=== PATIENT | female | born 1940 | race Caucasian/White ===

== ENCOUNTER 2016-06-13 17:48 | Observation (INO) | payer OTHER ==
[~2016-06-13] VITALS: Ht 157.5 cm; Wt 65.9 kg
[~2016-06-13 17:48] MED LIST: ATOR20TA PO; DORZ1SOL2 EACH EYE; FOSA70TA PO; LOSA25TA31 PO; ST JTAB PO; TAB-TAB PO; XALA0.00 EACH EYE
[2016-06-13 18:25] VITALS: BP 114/59; PULSE 72; RESP 16; TEMP 99.5; O2SAT 97
[2016-06-13] MEDS ORDERED: CARBIDOPA/LEVODOPA 25 MG/250 MG TAB PO ONE (19:15)
[2016-06-13] MEDS ORDERED: SODIUM CHLOR 0.9% 1000 ML INJ 1,000 ML IV ONE ×2 (19:29→23:45)
[2016-06-13] MEDS ORDERED: ONDANSETRON HCL 4 MG/2 ML VIAL IVP ONE (19:30)
[2016-06-13] MEDS ORDERED: MECLIZINE HCL 25 MG TAB PO ONE (19:30)
--- NOTE | 2016-06-13 19:43 | PD ---
HPI Chief Complaint: Dizziness Time Seen by Provider: 19:30 Travel History International Travel<30 days: No Contact w/Intl Traveler<30days: No Traveled to known affect area: No History of Present Illness HPI This is a 75-year-old female who presents via EMS for evaluation. She reports that since this morning she has been having dizziness, room spinning vertigo sensation, lower abdominal pain, nausea and vomiting and diarrhea. She reports that the vertigo sensation is worse when she is walking, improved when she is lying down flat. She reports an aching sensation in her left lower abdomen which is mild. She endorses several episodes of diarrhea this morning which improved with the use of Imodium. She has also been having nausea and vomiting this morning which has improved throughout the day. She denies any headache, blurred vision, fevers or chills, cough or congestion, shortness of breath, chest pain, palpitations, syncope, recent antibiotic use, history of diverticulosis, dysuria, flank pain. She does report that she has similar dizziness sensation last year and she was told that it was secondary to a low potassium at that time. She reports a remote history of breast cancer, uterine cancer, as well as hypertension. She has no other complaints. PFSH Past Medical History Arthritis: Yes Asthma: No Blood Disorders: No Anxiety: No Depression: No Heart Rhythm Problems: No Cancer: Yes (breast AND UTERINE) Cardiovascular Problems: Yes (HTN) High Cholesterol: Yes Chemotherapy: Yes (BREAST & UTERINE CA) Chest Pain: No Congestive Heart Failure: No COPD: No Diabetes: No Diminished Hearing: No Endocrine: No Glaucoma: Yes Genitourinary: No Hypertension: Yes Immune Disorder: No Musculoskeletal: Yes (OSTEOPOROSIS) Neurologic: No Psychiatric: No Reproductive: No Respiratory: No Sleep Apnea: No ?: Not Menopausal: Yes Past Surgical History Gynecologic Surgery: Yes (alexander mastectomy [id number] with chemo HYSTER) Hysterectomy: Yes Mastectomy: Yes (BILATERAL 1999) Oral Surgery: Yes (tonsillectomy) Tonsillectomy: Yes Other Surgery: Yes Social History Alcohol Use: Yes (RARE) Tobacco Use: No (quit 15 years ago) Substance Use: No Allergies-Medications (Allergen,Severity, Reaction): Coded Allergies: No Known Allergies (Verified , 06/13/16) Reported Meds & Prescriptions Reported Meds & Active Scripts Active Zofran Odt (Ondansetron Odt) 4 Mg Tab 4 Mg SL Q6HR PRN Reported Losartan (Losartan Potassium) 25 Mg Tab 25 Mg PO DAILY Atorvastatin (Atorvastatin Calcium) 20 Mg Tab 20 Mg PO DAILY Review of Systems Except as stated in HPI: all other systems reviewed are Neg Physical Exam Narrative GENERAL: Well-developed well-nourished female in no acute distress SKIN: Warm and dry. HEAD: Atraumatic. Normocephalic. EYES: Pupils equal and round. No scleral icterus. No injection or drainage. ENT: No nasal bleeding or discharge. Mucous membranes pink and moist. NECK: Trachea midline. No JVD. CARDIOVASCULAR: Regular rate and rhythm. No murmur appreciated. RESPIRATORY: No accessory muscle use. Clear to auscultation. Breath sounds equal bilaterally. GASTROINTESTINAL: Abdomen soft, mild left lower quadrant tenderness without guarding. No CVA tenderness. MUSCULOSKELETAL: No obvious deformities. No clubbing. No cyanosis. No edema. NEUROLOGICAL: Awake and alert. No obvious cranial nerve deficits. Motor grossly within normal limits. Normal speech. No nystagmus. PSYCHIATRIC: Appropriate mood and affect; insight and judgment normal. Data Data Last Documented VS Vital Signs Date Time Temp Pulse Resp B/P Pulse Ox O2 Delivery O2 Flow Rate FiO2 06/13/16 23:24 72 16 113/56 80 16 123/58 79 16 133/73 06/13/16 18:25 99.5 97 Orders Carbidopa-Levodopa 25-250 Mg (Sinemet 25 (06/13/16 19:15) Complete Blood Count With Diff (06/13/16 19:29) Comprehensive Metabolic Panel (06/13/16 19:29) Lipase (06/13/16 19:29) Prothrombin Time / Inr (Pt) (06/13/16 19:29) Act Partial Throm Time (Ptt) (06/13/16 19:29) Ct Abd/Pel W Iv Contrast(Rout) (06/13/16 19:29) Magnesium (Mg) (06/13/16 19:29) Ckmb (Isoenzyme) Profile (06/13/16 19:29) Troponin I (06/13/16 19:29) Ct Brain W/O Iv Contrast(Rout) (06/13/16 19:29) Meclizine (Antivert) (06/13/16 19:30) Ondansetron Inj (Zofran Inj) (06/13/16 19:30) Sodium Chlor 0.9% 1000 Ml Inj (Ns 1000 M (06/13/16 19:29) Cath For Specimen (06/13/16 20:53) Iohexol 350 Inj (Omnipaque 350 Inj) (06/13/16 21:34) Orthostatic Vital Signs (06/13/16 21:47) Sodium Chlor 0.9% 1000 Ml Inj (Ns 1000 M (06/13/16 23:45) Admit Order (Ed Use Only) (06/13/16 23:51) Labs Laboratory Tests Test 06/13/16 20:25 White Blood Count 11.1 TH/MM3 Red Blood Count 4.69 MIL/MM3 Hemoglobin 14.4 GM/DL Hematocrit 42.4 % Mean Corpuscular Volume 90.4 FL Mean Corpuscular Hemoglobin 30.8 PG Mean Corpuscular Hemoglobin 34.1 % Concent Red Cell Distribution Width 13.3 % Platelet Count 149 TH/MM3 Mean Platelet Volume 10.4 FL Neutrophils (%) (Auto) 91.1 % Lymphocytes (%) (Auto) 2.9 % Monocytes (%) (Auto) 5.4 % Eosinophils (%) (Auto) 0.1 % Basophils (%) (Auto) 0.5 % Neutrophils # (Auto) 10.1 TH/MM3 Lymphocytes # (Auto) 0.3 TH/MM3 Monocytes # (Auto) 0.6 TH/MM3 Eosinophils # (Auto) 0.0 TH/MM3 Basophils # (Auto) 0.1 TH/MM3 CBC Comment DIFF FINAL Differential Comment Prothrombin Time 10.5 SEC Prothromb Time International 1.0 RATIO Ratio Activated Partial 25.9 SEC Thromboplast Time Sodium Level 136 MEQ/L Potassium Level 3.7 MEQ/L Chloride Level 102 MEQ/L Carbon Dioxide Level 26.0 MEQ/L Anion Gap 8 MEQ/L Blood Urea Nitrogen 19 MG/DL Creatinine 0.86 MG/DL Estimat Glomerular Filtration 64 ML/MIN Rate Random Glucose 100 MG/DL Calcium Level 9.1 MG/DL Magnesium Level 1.9 MG/DL Total Bilirubin 0.7 MG/DL Aspartate Amino Transf 13 U/L (AST/SGOT) Alanine Aminotransferase 15 U/L (ALT/SGPT) Alkaline Phosphatase 45 U/L Total Creatine Kinase 39 U/L Troponin I LESS THAN 0.02 NG/ML Total Protein 7.0 GM/DL Albumin 3.6 GM/DL Lipase 146 U/L MDM Medical Decision Making Medical Screen Exam Complete: Yes Emergency Medical Condition: Yes Medical Record Reviewed: Yes Differential Diagnosis Dehydration, peripheral vertigo, orthostatic hypotension, electrolyte abnormality, arrhythmia, colitis, diverticulitis, sepsis Narrative Course 75-year-old female presents for evaluation of dizziness, left lower quadrant abdominal pain, nausea, vomiting, diarrhea. IV established. Basic lab work has been ordered, CT of the abdomen and pelvis and CT of the brain has been ordered. At the end of my shift the patient was signed out to Dr. Joseph pending imaging studies. Scripts Ondansetron Odt (Zofran Odt)4 Mg Tab4 Mg SL Q6HR PRN (Nausea/Vomiting) #10 TAB Ref 0 Prov:Edmund Joseph MD 06/13/16 Bruno De Paz Jun 13, 2016 19:43
[2016-06-13 20:42] LABS: AUTOMATED NEUTROPHIL # 10.1 TH/MM3 (1.8-7.7); BASOPHIL # 0.1 TH/MM3 (0-0.2); BASOPHIL % 0.5 % (0.0-2.0); EOSINOPHIL % 0.1 % (0.0-4.0); HEMATOCRIT 42.4 % (35.0-46.0); HEMO FLAGS DIFF FINAL; LYMPH % 2.9 % (9.0-44.0); LYMPHOCYTE # 0.3 TH/MM3 (1.0-4.8); MEAN CELL VOLUME 90.4 FL (80.0-100.0); MEAN CORPUSCULAR HEMOGLOBIN 30.8 PG (27.0-34.0); MEAN CORPUSCULAR HGB CONC 34.1 % (32.0-36.0); MONO % 5.4 % (0.0-8.0); NEUT % 91.1 % (16.0-70.0); PLATELET COUNT 149 TH/MM3 (150-450); RED BLOOD COUNT 4.69 MIL/MM3 (4.00-5.30); RED CELL DISTRIBUTION WIDTH 13.3 % (11.6-17.2); WHITE BLOOD COUNT 11.1 TH/MM3 (4.0-11.0)
--- NOTE | 2016-06-13 20:42 | PD ---
Physical Exam Date Seen by Provider: Jun 13, 2016 Time Seen by Provider: 20:41 Narrative The patient is a 75-year-old female was initially evaluated by the mid-level provider, please refer to the initial history, physical, diagnostic evaluation, and treatment modality plan. The patient was signed out at [address] and laboratory evaluation pending. Data Data Last Documented VS Vital Signs Date Time Temp Pulse Resp B/P Pulse Ox O2 Delivery O2 Flow Rate FiO2 06/13/16 23:24 72 16 113/56 80 16 123/58 79 16 133/73 06/13/16 18:25 99.5 97 Orders Carbidopa-Levodopa 25-250 Mg (Sinemet 25 (06/13/16 19:15) Complete Blood Count With Diff (06/13/16 19:29) Comprehensive Metabolic Panel (06/13/16 19:29) Lipase (06/13/16 19:29) Prothrombin Time / Inr (Pt) (06/13/16 19:29) Act Partial Throm Time (Ptt) (06/13/16 19:29) Urinalysis - C+S If Indicated (06/13/16 19:29) Ct Abd/Pel W Iv Contrast(Rout) (06/13/16 19:29) Magnesium (Mg) (06/13/16 19:29) Ckmb (Isoenzyme) Profile (06/13/16 19:29) Troponin I (06/13/16 19:29) Ct Brain W/O Iv Contrast(Rout) (06/13/16 19:29) Meclizine (Antivert) (06/13/16 19:30) Ondansetron Inj (Zofran Inj) (06/13/16 19:30) Sodium Chlor 0.9% 1000 Ml Inj (Ns 1000 M (06/13/16 19:29) Cath For Specimen (06/13/16 20:53) Iohexol 350 Inj (Omnipaque 350 Inj) (06/13/16 21:34) Orthostatic Vital Signs (06/13/16 21:47) Sodium Chlor 0.9% 1000 Ml Inj (Ns 1000 M (06/13/16 23:45) Admit Order (Ed Use Only) (06/13/16 23:51) Labs Laboratory Tests Test 06/13/16 20:25 White Blood Count 11.1 TH/MM3 Red Blood Count 4.69 MIL/MM3 Hemoglobin 14.4 GM/DL Hematocrit 42.4 % Mean Corpuscular Volume 90.4 FL Mean Corpuscular Hemoglobin 30.8 PG Mean Corpuscular Hemoglobin 34.1 % Concent Red Cell Distribution Width 13.3 % Platelet Count 149 TH/MM3 Mean Platelet Volume 10.4 FL Neutrophils (%) (Auto) 91.1 % Lymphocytes (%) (Auto) 2.9 % Monocytes (%) (Auto) 5.4 % Eosinophils (%) (Auto) 0.1 % Basophils (%) (Auto) 0.5 % Neutrophils # (Auto) 10.1 TH/MM3 Lymphocytes # (Auto) 0.3 TH/MM3 Monocytes # (Auto) 0.6 TH/MM3 Eosinophils # (Auto) 0.0 TH/MM3 Basophils # (Auto) 0.1 TH/MM3 CBC Comment DIFF FINAL Differential Comment Prothrombin Time 10.5 SEC Prothromb Time International 1.0 RATIO Ratio Activated Partial 25.9 SEC Thromboplast Time Sodium Level 136 MEQ/L Potassium Level 3.7 MEQ/L Chloride Level 102 MEQ/L Carbon Dioxide Level 26.0 MEQ/L Anion Gap 8 MEQ/L Blood Urea Nitrogen 19 MG/DL Creatinine 0.86 MG/DL Estimat Glomerular Filtration 64 ML/MIN Rate Random Glucose 100 MG/DL Calcium Level 9.1 MG/DL Magnesium Level 1.9 MG/DL Total Bilirubin 0.7 MG/DL Aspartate Amino Transf 13 U/L (AST/SGOT) Alanine Aminotransferase 15 U/L (ALT/SGPT) Alkaline Phosphatase 45 U/L Total Creatine Kinase 39 U/L Troponin I LESS THAN 0.02 NG/ML Total Protein 7.0 GM/DL Albumin 3.6 GM/DL Lipase 146 U/L [facility] Medical Record Reviewed: Yes Supervised Visit with DRAKE: Yes Differential Diagnosis Differential diagnosis includes gastroenteritis, orthostatic hypotension, dehydration, colitis, gastroenteritis, diverticulitis, vertigo. Narrative Course I, Dr. Joseph, have reviewed the advance practice practitioner's documentation and am in agreement, met with the patient face to face, made the diagnosis, and the medical decision making was done by me. *My assessment and Findings: The patient was initially evaluated by the mid- level provider, please refer to the initial history, physical, diagnostic evaluation, treatment modality plan. The patient notes dizziness with positional changes such as going from a lying to sitting position. She also complains of nausea, vomiting, and diarrhea earlier today. She now complains of left lower quadrant abdominal pain and subjective fever. IV was established , labs are drawn and sent, and the patient was placed on cardiac telemetry monitoring and continuous pulse oximetry monitoring. Orthostatic vital signs were obtained. The patient was administered Zofran and IV fluids. CT the abdomen and pelvis reveals gallstones and mildly thickened gallbladder wall. Abdominal exam was repeated, patient has negative Davis's exam and has no tenderness in the right upper quadrant. Patient has mild tenderness in the left lower quadrant, CT is negative for colitis. Patient does note multiple episodes of vomiting with significant diarrhea and orthostatic dizziness. Therefore, patient was administered IV fluids and orthostatic vital signs were obtained. Orthostatic vital signs are unremarkable, however, when the patient stood up she was extremely unsteady, patient was unable to ambulate secondary to her dizziness/vertigo. The patient has received IV fluids with mild improvement of her symptoms, however, is unable to cannulate. Therefore, patient will be 23 hour observation for IV hydration and reevaluation of her ability to and bleed in the morning. Patient may need evaluation by physical therapy if she is unable to ambulate. The patient's primary physician is Dr. Finn, therefore, [facility] was paged for 23 hour observation. Physician Communication Physician Communication I discussed the patient with Dr. Finn who agrees with [address] Lama. Diagnosis Primary Impression: Gastroenteritis Additional Impressions: Dehydration Dizziness Admitting Information Admitting Physician Requests: Observation Additional Instruction: Medications as directed. Follow-up with your primary physician. Please provide the patient a copy of her CT results and lab results at discharge. Return if symptoms worsen or progress. Scripts Ondansetron Odt (Zofran Odt)4 Mg Tab4 Mg SL Q6HR PRN (Nausea/Vomiting) #10 TAB Ref 0 Prov:Edmund Joseph MD 06/13/16 Condition: Stable Edmund Joseph MD Jun 13, 2016 20:42
[2016-06-13] MEDS ORDERED: ATOR20TA15 PO (20:46)
[2016-06-13] MEDS ORDERED: LOSA25TA PO (20:46)
[2016-06-13 21:04] LABS: ANION GAP 8 MEQ/L (5-15); AST (GOT) 13 U/L (15-37); BLOOD UREA NITROGEN 19 MG/DL (7-18); CHLORIDE 102 MEQ/L (98-107); GLOMERULAR FILTRATION RATE 64 ML/MIN (>89); MAGNESIUM 1.9 MG/DL (1.5-2.5); POTASSIUM 3.7 MEQ/L (3.5-5.1); SODIUM (NA) 136 MEQ/L (136-145)
[2016-06-13 21:07] LABS: APTT (PATIENT) 25.9 SEC (24.3-30.1); PROTHROMBIN TIME - PATIENT 10.5 SEC (9.8-11.6)
[2016-06-13 21:09] LABS: ALKALINE PHOSPHATASE 45 U/L (45-117); ALT (GPT) 15 U/L (10-53); TOTAL BILIRUBIN ADULT 0.7 MG/DL (0.2-1.0)
[2016-06-13 21:11] LABS: CREATINE KINASE 39 U/L (26-192)
[2016-06-13] MEDS ORDERED: IOHEXOL 350 MG/ML 10 ML VIAL (for RAD DIAG) IV ONE (21:34)
--- NOTE | 2016-06-13 21:51 | RADRPT ---
EXAM DATE/TIME: 06/13/2016 21:26 [facility] COMPARISON: CT BRAIN W/O CONTRAST, April 16, 2015, 11:18. INDICATIONS : Dizziness and altered mental status. RADIATION DOSE: 61.23 CTDIvol (mGy) MEDICAL HISTORY : Hypertension. Carcinoma, breast. Uterine cancer. SURGICAL HISTORY : Tonsillectomy. Hysterectomy.Mastectomy, bilateral. ENCOUNTER: Initial ACUITY: 1 day PAIN SCALE: 0/10 LOCATION: cranial TECHNIQUE: Multiple contiguous axial images were obtained of the head. Using automated exposure control and adj ustment of the mA and/or kV according to patient size, radiation dose was kept as low as reasonably a chievable to obtain optimal diagnostic quality images. FINDINGS: CEREBRUM: The ventricles are normal for age. No evidence of midline shift, mass lesion, hemorrhage or acute in farction. No extra-axial fluid collections are seen. POSTERIOR FOSSA: The cerebellum and brainstem are intact. The 4th ventricle is midline. The cerebellopontine angle i s unremarkable. EXTRACRANIAL: The visualized portion of the orbits is intact. SKULL: The calvaria is intact. No evidence of skull fracture. CONCLUSION: Stable brain appearance with no acute findings. Júnior Bocanegra MD on June 13, 2016 at 21:48 Board Certified Radiologist. This report was verified electronically.
--- NOTE | 2016-06-13 21:56 | RADRPT ---
EXAM DATE/TIME: 06/13/2016 21:29 [facility] COMPARISON: No previous studies available for comparison. INDICATIONS : Diffuse abdominal pain. IV CONTRAST: 55 cc Omnipaque 350 (iohexol) IV ORAL CONTRAST: No oral contrast ingested. RADIATION DOSE: 9.22 CTDIvol (mGy) MEDICAL HISTORY : Hypertension. Carcinoma, breast. Uterine cancer. SURGICAL HISTORY : Tonsillectomy. Hysterectomy.Mastectomy, bilateral. ENCOUNTER: Initial ACUITY: 1 day PAIN SCALE: 4/10 LOCATION: Diffuse abdomen/pelvis TECHNIQUE: Volumetric scanning of the abdomen and pelvis was performed. Using automated exposure control and ad justment of the mA and/or kV according to patient size, radiation dose was kept as low as reasonably achievable to obtain optimal diagnostic quality images. FINDINGS: LOWER LUNGS: Minimal scarring in the posterior right lung base. LIVER: Homogeneous density without lesion. There is no dilation of the biliary tree. Densely calcified gall stone in the dependent gallbladder. Slight gallbladder wall thickening.. SPLEEN: Normal size without lesion. PANCREAS: Within normal limits. KIDNEYS: Normal in size and shape. There is no mass, stone or hydronephrosis. ADRENAL GLANDS: Within normal limits. VASCULAR: There is no aortic aneurysm. BOWEL/MESENTERY: Small hiatal hernia. Distal colonic diverticula. No abnormal dilatation or wall thickening or focal i nflammatory changes. ABDOMINAL WALL: Within normal limits. RETROPERITONEUM: There is no lymphadenopathy. BLADDER: No wall thickening or mass. REPRODUCTIVE: Uterus surgically absent. No evidence of pelvic mass or free fluid. INGUINAL: There is no lymphadenopathy or hernia. MUSCULOSKELETAL: Within normal limits for patient age. CONCLUSION: Gallstone. Mild gallbladder wall thickening. Otherwise no acute CT findings in the abdomen or pelvis. Júnior Bocanegra MD on June 13, 2016 at 21:49 Board Certified Radiologist. This report was verified electronically.
[2016-06-13] MEDS ORDERED: ZOFR4TAB3 SL (23:12)
[2016-06-13 23:24] VITALS: BP_SYST 113; BP_SYST 123; BP_SYST 133; BP_DIAS 56; BP_DIAS 58; BP_DIAS 73; RESP 16
[2016-06-14] MEDS ORDERED: ONDANSETRON ODT 4 MG TAB SL PRN
[2016-06-14] MEDS ORDERED: SODIUM CHLORIDE 0.9% FLUSH 10 ML FLUSH IV FLUSH PRN
[2016-06-14] MEDS ORDERED: ACETAMINOPHEN 325 MG TAB PO PRN
[2016-06-14] MEDS ORDERED: ONDANSETRON HCL 4 MG/2 ML VIAL IVP PRN
[2016-06-14] MEDS ORDERED: NALOXONE HCL 0.4 MG/ML AMP IV PRN
--- NOTE | 2016-06-14 00:08 | HHI.HP ---
HPI Service [facility] Hospitalists Primary Care Physician Kwame Finn MD Admission Diagnosis gastroenteritis, dehydration, dizziness Chief Complaint: dizziness nausea diarrhea today Travel History International Travel<30 Days: No Contact w/Intl Traveler <30 Da: No Traveled to Known Affected Are: No History of Present Illness This is a 75-year-old female who presents via EMS for evaluation. She reports that ever since this morning she has been having dizziness, room spinning vertigo sensation, lower abdominal pain, nausea and vomiting and diarrhea. She reports that the vertigo sensation is worse when she is walking, improved when she is lying down flat. She reports an aching sensation in her left lower abdomen which is mild. She endorses several episodes of diarrhea this morning which improved with the use of Imodium. She has also been having nausea and vomiting this morning which has improved throughout the day. She denies any headache, blurred vision, fevers or chills, cough or congestion, shortness of breath, chest pain, palpitations, syncope, recent antibiotic use, history of diverticulosis, dysuria, flank pain. She does report that she has similar dizziness sensation last year and she was told that it was secondary to a low potassium at that time. She reports a remote history of breast cancer, uterine cancer, as well as hypertension. She has no other complaints. She received IV fluid but still was unable to ambulate on her own and i believe it is unsafe to send her home tonight will continue IV fluid and if stable discharge in am. Review of Systems Constitutional: COMPLAINS OF: Dizziness Gastrointestinal: COMPLAINS OF: Diarrhea, Nausea Past Family Social History Past Medical History breast uterine ca,hypertension,hyperlipidemia glucoma Past Surgical History bilateral mastectomy,hysterectomy Reported Medications Aspirin Ec Low Dose (Aspirin) 81 Mg Tab 81 Mg PO DAILY Xalatan (Latanoprost) 0.005 % Vikki 1 Drop EACH EYE HS Cosopt (Dorzolamide/Timolol) 5 Ml Soln 1 Drop EACH EYE BID Atorvastatin 20 mg tab (Atorvastatin Calcium) 20 Mg Tab 20 Mg PO HS Cozaar (Losartan Potassium) 25 Mg Tab 25 Mg PO BID Fosamax (Alendronate Sodium) 70 Mg Tab 70 Mg PO Q7D TAKE 30 MINUTES BEFORE THE MORNING MEAL, ONLY WATER Multivitamin (Multivitam Allergies: Coded Allergies: No Known Allergies (Verified , 06/13/16) Social History NS,ND Physical Exam Vital Signs Vital Signs Date Time Temp Pulse Resp B/P Pulse Ox O2 Delivery O2 Flow Rate FiO2 06/13/16 23:24 72 16 113/56 80 16 123/58 79 16 133/73 06/13/16 18:25 99.5 72 16 114/59 97 Physical Exam GENERAL: This is a well-nourished, well-developed patient, in no apparent distress. Significant dizziness on any attempt to ambulate SKIN: No rashes, ecchymoses or lesions. Cool and dry. HEAD: Atraumatic. Normocephalic. No temporal or scalp tenderness. EYES: Pupils equal round and reactive. Extraocular motions intact. No scleral icterus. No injection or drainage. ENT: Nose without bleeding, purulent drainage or septal hematoma. Throat without erythema, tonsillar hypertrophy or exudate. Uvula midline. Airway patent. NECK: Trachea midline. No JVD or lymphadenopathy. Supple, nontender, no meningeal signs. CARDIOVASCULAR: Regular rate and rhythm without murmurs, gallops, or rubs. RESPIRATORY: Clear to auscultation. Breath sounds equal bilaterally. No wheezes , rales, or rhonchi. GASTROINTESTINAL: Abdomen soft, non-tender, nondistended. No hepato-splenomegaly , or palpable masses. No guarding. MUSCULOSKELETAL: Extremities without clubbing, cyanosis, or edema. No joint tenderness, effusion, or edema noted. No calf tenderness. Negative Homans sign bilaterally. NEUROLOGICAL: Awake and alert. Cranial nerves II through XII intact. Motor and sensory grossly within normal limits. Five out of 5 muscle strength in all muscle groups. Normal speech. Laboratory Laboratory Tests Test 06/13/16 20:25 White Blood Count 11.1 Red Blood Count 4.69 Hemoglobin 14.4 Hematocrit 42.4 Mean Corpuscular Volume 90.4 Mean Corpuscular Hemoglobin 30.8 Mean Corpuscular Hemoglobin 34.1 Concent Red Cell Distribution Width 13.3 Platelet Count 149 Mean Platelet Volume 10.4 Neutrophils (%) (Auto) 91.1 Lymphocytes (%) (Auto) 2.9 Monocytes (%) (Auto) 5.4 Eosinophils (%) (Auto) 0.1 Basophils (%) (Auto) 0.5 Neutrophils # (Auto) 10.1 Lymphocytes # (Auto) 0.3 Monocytes # (Auto) 0.6 Eosinophils # (Auto) 0.0 Basophils # (Auto) 0.1 CBC Comment DIFF FINAL Differential Comment Prothrombin Time 10.5 Prothromb Time International 1.0 Ratio Activated Partial 25.9 Thromboplast Time Sodium Level 136 Potassium Level 3.7 Chloride Level 102 Carbon Dioxide Level 26.0 Anion Gap 8 Blood Urea Nitrogen 19 Creatinine 0.86 Estimat Glomerular Filtration 64 Rate Random Glucose 100 Calcium Level 9.1 Magnesium Level 1.9 Total Bilirubin 0.7 Aspartate Amino Transf 13 (AST/SGOT) Alanine Aminotransferase 15 (ALT/SGPT) Alkaline Phosphatase 45 Total Creatine Kinase 39 Troponin I LESS THAN 0.02 Total Protein 7.0 Albumin 3.6 Lipase 146 Result Diagram: 06/13/16202406/13/162024 Imaging Last [address] 06/13/161928 Signed Impressions: Service Date/Time: Monday, June 13, 2016 21:26 - CONCLUSION: Stable brain appearance with no acute findings. Júnior Bocanegra MD Abdomen/Pelvis CT 06/13/161928 Signed Impressions: Service Date/Time: Monday, June 13, 2016 21:29 - CONCLUSION: Gallstone. Mild gallbladder wall thickening. Otherwise no acute CT findings in the abdomen or pelvis. Júnior Bocanegra MD Course in er received IV fluids Assessment and Plan Problem List: (1) Dizziness Status: Acute Plan: dizziness probably related to gastroenteritis will continue IV fluid and hopefully will feel better in am. (2) Orthostatic hypotension Status: Acute Plan: above IV fluid (3) Gastroenteritis Status: Acute Plan: full liquids and advance as tolerated Assessment and Plan as above Code Status full Discussed Condition With patient Kwame Finn MD Jun 14, 2016 00:08
[2016-06-14] MEDS: SODIUM CHLOR 0.45% 1000 ML INJ 1,000 ML IV SCH ×2 (01:31→03:17)
[2016-06-14 01:32] VITALS: BP 109/57; PULSE 62; RESP 16; O2SAT 97
[2016-06-14 03:30] VITALS: BP 128/59; PULSE 72; RESP 18; TEMP 98.1; O2SAT 98
[2016-06-14 07:38] VITALS: BP 165/75; PULSE 70; RESP 20; TEMP 97.6; O2SAT 98
[2016-06-14] MEDS ORDERED: LOSARTAN 25 MG TAB PO SCH (09:00)
[2016-06-14] MEDS ORDERED: SODIUM CHLORIDE 0.9% FLUSH 10 ML FLUSH IV FLUSH SCH (09:00)
[2016-06-14 11:31] VITALS: BP 119/59; PULSE 61; RESP 18; TEMP 97.9; O2SAT 95
--- NOTE | 2016-06-14 14:26 | HHI.DCPOC ---
Discharge Care Plan Diagnosis: (1) Gastroenteritis (2) Orthostatic hypotension (3) Dizziness (4) Dehydration Goals to Promote Your Health * To prevent worsening of your condition and complications * To maintain your health at the optimal level Directions to Meet Your Goals Take your medications as prescribed Follow your dietary instruction Follow activity as directed Keep your appointments as scheduled Take your immunizations and boosters as scheduled If your symptoms worsen call your PCP, if no PCP go to Urgent Care Center or Emergency Room Smoking is Dangerous to Your Health. Avoid second hand smoke Call the 24-hour hour crisis hotline for domestic abuse at Boni Lama MD Jun 14, 2016 14:26
--- NOTE | 2016-06-14 14:29 | HHI.PR ---
Subjective Remarks pt ate lunch and has ambulated no n/v/d eager for d/c Objective Vitals heart reg lung cta abd s/nt/nabs ext no edema Vital Signs Date Time Temp Pulse Resp B/P Pulse Ox O2 Delivery O2 Flow Rate FiO2 06/14/16 11:31 97.9 61 18 119/59 95 06/14/16 07:38 97.6 70 20 165/75 98 06/14/16 03:30 98.1 72 18 128/59 98 06/14/16 01:32 62 16 109/57 97 Room Air 06/13/16 23:24 72 16 113/56 80 16 123/58 79 16 133/73 06/13/16 18:25 99.5 72 16 114/59 97 Result Diagram: 06/13/16202406/13/162024 Imaging Last [address] 06/13/161928 Signed Impressions: Service Date/Time: Monday, June 13, 2016 21:26 - CONCLUSION: Stable brain appearance with no acute findings. Júnior Bocanegra MD Abdomen/Pelvis CT 06/13/161928 Signed Impressions: Service Date/Time: Monday, June 13, 2016 21:29 - CONCLUSION: Gallstone. Mild gallbladder wall thickening. Otherwise no acute CT findings in the abdomen or pelvis. Júnior Bocanegra MD A/P Problem List: (1) Gastroenteritis Status: Acute Plan: admitted for n/v/d and dehydration/dizziness last night related to gastroenteritis today pt says her sx's are much better. ambulating and tolerating food. eager for d/c. d/c home and pcp f/u next week. (2) Dizziness Status: Acute Plan: see above (3) Orthostatic hypotension Status: Acute Plan: above IV fluid Boni Lama MD Jun 14, 2016 14:29
== END 2016-06-14 16:31 | disposition home or self-care (01) ==
LOC: NEPA 17:48 → NEDA 23:52 → NEPFCDU 06-14 03:17
PROVIDERS: ADMIT Hospitalist; ATTEND Hospitalist
DX: R42 Dizziness and giddiness (principal); I95.1 Orthostatic hypotension; K52.9 Noninfective gastroenteritis and colitis, unspecified; I10 Essential (primary) hypertension; M19.90 Unspecified osteoarthritis, unspecified site; E78.00 Pure hypercholesterolemia, unspecified; M81.0 Age-related osteoporosis without current pathological fracture; E86.0 Dehydration; E78.5 Hyperlipidemia, unspecified; Z85.3 Personal history of malignant neoplasm of breast; Z85.42 Personal history of malignant neoplasm of other parts of uterus; Z90.13 Acquired absence of bilateral breasts and nipples
CPT/HCPCS: 70450; 74177; 80053; 82550; 83690; 83735; 84484; 85025; 85610; 85730; 96361; 96374; G0378; J2405; J7030; P9612; Q9967

== ENCOUNTER → 2016-10-29 | Day surgery (SDC) | payer OTHER ==
[~2016-10-29] VITALS: Ht 157.5 cm; Wt 61.5 kg
[~2016-10-29] MED LIST changes: +ASPI81CH CHEW; -ATOR20TA PO; +ATOR20TA15 PO; +BUPIVACAINE HCL PF 0.5% 30 ML VIAL ONE; +CALC600T10 PO; +CEPH-459 PO; +CHLORHEXIDINE GLUCONATE 2 % 1 PACK (2 CLOTHS) TOPICAL PRN; -DORZ1SOL2 EACH EYE; +DORZ2SOL15 EACH EYE; -FOSA70TA PO; +INSULIN HUMAN REGULAR 1,000 UNITS/10 ML VIAL SQ PRN; +LACTATED RINGER'S 1000 ML INJ 1,000 ML ONE; +LACTATED RINGER'S 1000 ML IV PRN; +LATA0.002 EACH EYE; +LIDOCAINE HCL 2% 50 ML VIAL ONE; +LOSA25TA PO; -LOSA25TA31 PO; +METOPROLOL TARTRATE 25 MG TAB PO PRN; +MULTTAB24; +NEOMYCIN/POLYMYXIN 1 ML G.U. IRRIGANT ONE; +NORC5TAB PO; +OMEG100010; +POVIDONE IODINE 5% (ANTISEPSIS KIT) 4 APPLICATIONS EACH NARE PRN; +PROPOFOL 200 MG/20 ML AMP IV ONE; +SODIUM CHLORID 0.9% 500 ML IV PRN; +SODIUM CHLORIDE 0.9% INJ 50 ML ONE; -ST JTAB PO; -TAB-TAB PO; +TRIAMCINOLONE ACETONIDE 40 MG/ML VIAL ONE; -XALA0.00 EACH EYE; +ceFAZolin 1,000 MG/NS 100 ML IV SCH; +ceFAZolin INJ 1,000 MG VIAL ONE
[2016-10-29 09:12] VITALS: BP 155/82; PULSE 70; RESP 16; TEMP 98.3; O2SAT 98
[2016-10-29 09:27] LABS: HEMATOCRIT 41.7 % (35.0-46.0); MEAN CELL VOLUME 92.1 FL (80.0-100.0); MEAN CORPUSCULAR HEMOGLOBIN 31.4 PG (27.0-34.0); MEAN CORPUSCULAR HGB CONC 34.1 % (32.0-36.0); PLATELET COUNT 200 TH/MM3 (150-450); RED BLOOD COUNT 4.53 MIL/MM3 (4.00-5.30); RED CELL DISTRIBUTION WIDTH 12.8 % (11.6-17.2); REVIEW FLAG FINAL; WHITE BLOOD COUNT 6.2 TH/MM3 (4.0-11.0)
[2016-10-29 11:40] VITALS: BP 159/96; PULSE 67; RESP 16; TEMP 98.1; O2SAT 98
--- NOTE | 2016-10-30 08:09 | EKG ---
Date Performed: 10/29/2016 Time Performed: 09:26:31 PTAGE: 75 years EKG: Sinus rhythm WITH SINUS ARRHYTHMIA MARKED LEFT AXIS DEVIATION ABNORMAL ECG PREVIOUS TRACING : 04/16/2015 10.00 DOCTOR: Brandon Patel Interpretating Date/Time 10/30/2016 08:04:59
--- NOTE | 2016-10-31 11:14 | MP ---
cc: RANDY GRANT III, M.D. DATE OF SURGERY: 10/29/2016 PREOPERATIVE DIAGNOSIS Bilateral carpal tunnel syndrome. PROCEDURE 1. Left open carpal tunnel release. 2. Right carpal tunnel steroid injection. SURGEON Randy Grant III, MD PROCEDURE The patient was brought to the operating room and placed supine on the operating table. After the correct site and side of surgery were verified by members of each team in the room multiple times including the patient, myself and after adequate preoperative markings, preoperative written consent were verified by everyone and after adequate preoperative time-out was performed to everyone's satisfaction, after adequate IV sedation had been achieved, the left upper extremity was prepped and draped in traditional sterile surgical fashion. A 50/50 mixture of 2% plain lidocaine and 0.5% plain Marcaine was infiltrated in the skin and subcutaneous tissue and to the carpal tunnel. The limb was exsanguinated with a gentle Oli wrap and the Oli wrap was left around the forearm to be used as a tourniquet and this was left in place for a total of 9 minutes. Longitudinal incision at the base of the palm was made and carried down through skin and subcutaneous tissue. Blunt dissection was performed. Bipolar electrocautery was used as needed. The transverse carpal ligament was identified and divided in its entirety from its proximal most to its distal-most extents, completely releasing the carpal tunnel and all of its contents which appeared to be intact. Exploration did not reveal any other anatomic abnormalities, no mass effect identified. Thorough irrigation with saline was performed. The skin edges reapproximated using running 4-0 Nylon suture. The hand and arm were thoroughly cleansed and dried. Betadine and Adaptic dressing was applied on top of the wound followed by bulky soft dressing. The tourniquet was released and the hand and all the fingers became immediately soft, pink and warm and had brisk capillary refill of less than 2 seconds. Circumferential Oli wrap was then applied in the usual fashion. Attention was then paid to the right carpal tunnel and the carpal tunnel was injected sterilely using a 2:1 mixture of 2% plain lidocaine and Kenalog 40 mg per mL for a total of 3 ccs of injectate, pressure was held and a sterile dressing was applied. Capillary refill was less than 2-seconds the entire time in all the fingers. The patient was awakened from anesthesia and transported to the Post Anesthesia Care Unit awake and in stable condition at the end of the case. Sponge, needle and instrument counts were correct at the end of the case as reported by nurses in the room. MD SAMY Baig III/MALIK /10:17 AM /11:00 AM
== END | disposition home or self-care (01) ==
LOC: PHSDC 08:51
PROVIDERS: ATTEND Orthopaedic Surgery Hand Surgery
DX: G56.03 Carpal tunnel syndrome, bilateral upper limbs (principal); I10 Essential (primary) hypertension; E78.5 Hyperlipidemia, unspecified; H40.9 Unspecified glaucoma; Z01.810 Encounter for preprocedural cardiovascular examination; Z01.818 Encounter for other preprocedural examination
CPT/HCPCS: 01810; 20526; 36415; 64721; 85027; 93005; J0690; J3010; J3301; J7120